=== PATIENT | male | born 1960 | race Caucasian/White ===

== ENCOUNTER 2016-08-24 16:10 | Emergency (ER) | payer OTHER ==
[~2016-08-24] VITALS: Ht 188 cm; Wt 94.9 kg
[~2016-08-24 16:10] MED LIST: AMOXICILLIN500 MG PO; ATORVASTATIN CA80 MG PO; CRESTOR40 MG PO; DAILY VITAMIN1 EAC8 PO; KEFLEX500 MG PO; LOW DOSE ASPIRI81 M1 PO; MIRTAZAPINE45 MG PO; MOBIC15 MG PO; NORVASC10 MG PO; PERCOCET 5/31 TABLET PO; REMERON30 M2 PO; ZOLOFT100 MG PO; ZOLOFT25 MG PO
[2016-08-24 16:25] VITALS: BP 142/94
[2016-08-24] MEDS ORDERED: METFORMIN HCL500 MG PO (17:29)
[2016-08-24] MEDS ORDERED: LORAZEPAM0.5 MG PO (17:30)
[2016-08-24] MEDS ORDERED: ASPIR 8181 M1 PO (17:30)
[2016-08-24] MEDS ORDERED: OMEPRAZOLE20 M2 PO (17:31)
[2016-08-24] MEDS ORDERED: VIBRAMYCIN100 MG PO (18:24)
[2016-08-24] MEDS ORDERED: PERCOCET 5/31 TABLET PO (18:24)
== END 2016-08-24 18:42 | disposition home or self-care (01) ==
LOC: RME 16:10 → EME 16:10 → RME 18:42
PROC: 0HDRXZZ Extraction of Toe Nail, External Approach (ICD-10-PCS; principal; 2016-08-24)
DX: L60.0 Ingrowing nail (principal)
CPT/HCPCS: 99281; 99284